=== PATIENT | male | born 1970 | race Caucasian/White ===

== ENCOUNTER 2021-08-05 22:19 | Inpatient (IN) | payer OTHER, SELFPAY ==
[2021-08-05] VITALS (13 sets, daily range): BP systolic 103–143; BP diastolic 69–98; PULSE 76–93; RESP 16–22; TEMP 36.3; O2SAT 95–98
[2021-08-05 22:46] LABS: Abs Immature Grans 0.01 10^3/uL (0.0-0.06); Absolute Basophil Count 0.07 10^3/uL (0.0-0.2); Absolute Eosinophil Count 0.26 10^3/uL (0.0-0.7); Absolute Lymphocyte Count 1.71 10^3/uL (1.2-3.4); Absolute Monocyte Count 0.42 10^3/uL (0.1-0.8); Absolute Neutrophil Count 3.61 10^3/uL (1.2-6.7); Basophils % 1.2; Eosinophils % 4.3; HCT 43.9 % (40.0-50.0); HGB 15.5 g/dL (13.5-17.5); Immature Grans % 0.2; Lymphocytes % 28.1; MCH 29.7 pg (27.0-33.0); MCHC 35.3 % (32.0-36.0); MCV 84 fL (80-95); Monocytes % 6.9; Neutrophils % 59.3; RBC 5.22 10^6/uL (4.36-5.78); RDW 11.4 % (11.8-14.1); RDW-SD 34.9 fL
[2021-08-05 22:59] LABS: ALT 33 U/L (16-63); AST 17 U/L (15-37); Albumin 3.5 g/dL (3.4-5.0); Alkaline Phosphatase 73 U/L (46-116); Anion Gap 4.2 mmol/L (3-11); BUN 14 mg/dL (7-18); Bilirubin, Total 0.6 mg/dL (0.2-1.0); CO2 28.8 mmol/L (21.0-32.0); Calcium 8.4 mg/dL (8.5-10.1); Chloride 103 mmol/L (98-107); Glucose 171 mg/dL (74-106); Potassium 4.1 mmol/L (3.5-5.1); Sodium 136 mmol/L (136-145); Total Protein 6.5 g/dL (6.4-8.2)
[2021-08-05 23:00] LABS: WBC 6.08 10^3/uL (4.4-10.8)
[2021-08-05 23:03] LABS: Platelet Count 1 10^3/uL (130-400)
[2021-08-05 23:06] LABS: Diff Comment PLT Morph Reviewed; RBC Morphology Normal
[2021-08-05 23:11] LABS: PTT Activated 24.4 sec (21.0-27.5); Prothrombin Time 9.9 sec (9.3-11.0)
[2021-08-05] MEDS: Normal Saline 50 ML 200 ML (23:24)
--- NOTE | 2021-08-05 23:26 | ED.GENADUL_ITS ---
Discharge Plan Disposition Patient Disposition: [facility] INPATIENT Condition: Serious Discharge Details Clinical Impression: Severe thrombocytopenia Admit Date/Time: 08/06/21 00:18 Admit Provider: Michael Senior Attending Provider: Michael Senior Primary Care Provider: Sayda,[facility] ED Provider: Jama Anton Discharge Data Discharge Date/Time-TO BE ENTERED AT DEPARTURE: 08/06/21 01:19 Medical Decision Making [id number] --51-year-old male here with recurrent thrombpcytopenia - diagnosed with ITP 2019. Patient has no active hemorrhage. He has had blood tinged urine and stool this evening. Patient is hemodynamically stable. Platelets are 1. Normal hemoglobin. Plan to treat with Decadron 40 mg IV. I have called [facility] [place] to request consultation with hematology. 0005 -- I spoke with Dr. Emery, production consultant hemonc at [facility] [place], discussed ED presentation and course, reviewed labs, he recommends additional diagnostic labs and recommends giving IVIG 1 g/kg x 1. He agrees with Decadron 40 mg IV. He also recommends 1 unit of platelets. He recommends consider redose of the IVIG if no appropriate response in the a.m. He recommends 4 days of Decadron. Plan to admit to hospitalist service. 1215 -- I spoke with Dr. Senior -discussed ED presentation and course, he will admit the patient. He request bridging orders be placed to [facility] floor. HPI General Mode of arrival: ambulatory . Date/Time Provider Initiated Documentation: 08/05/21 22:37 . Limitations to Documentation: no limitations . Information obtained by: patient . HPI Narrative: 51-year-old male with history of ITP in 2019 presents with chief complaint of b leeding. Patient notes rash on arms and legs consistent with prior flare of ITP. Rash started yesterday and has persisted. He also notes blood in stool and blood tinged urine, and blood blister on tongue. Symptoms severe. Constant. No modfiers. Related Data Home Medications Medication Instructions Recorded Confirmed dulaglutide 4.5 mg/0.5 mL 4.5 mg subcut QWEEK 08/05/21 08/05/21 subcutaneous pen injector (Trulicity) insulin degludec 100 unit/mL (3 34 unit subcut DAILY 08/05/21 08/05/21 mL) subcutaneous pen (Tresiba FlexTouch U-100 insulin) metformin 1,000 mg tablet 1,000 mg PO BID 08/05/21 08/05/21 Allergies Allergy/AdvReac Type Severity Reaction Status Date / Time No Known Allergies Allergy Unverified 08/05/21 22:28 General Stated Complaint: Vascular MORRO: 3 Review of Systems All systems reviewed & are unremarkable except as noted in HPI and below Constitutional Constitutional: Denies fever(s) Gastrointestinal Gastrointestinal: Reports as per HPI PFSH All Active Problems (Updated 08/06/21 @ 00:17 by Jama Anton MD) Severe thrombocytopenia (Acute) Social History Smoking/Tobacco Use Status: Never Smoking risk assessment performed?: Yes Alcohol Intake: never Do you feel safe at home: Yes Do you feel safe in your relationship?: Yes Exam Const General: cooperative and no acute distress HENMT Mouth: other (bloody gumline, tiny blood blisters on tongue) Eyes Conjunctivae: normal conjunctivae Sclera: normal sclerae Neck Neck: trachea midline and supple Resp Auscultation: clear to auscultation bilaterally, no rales, no rhonchi and no wheezes Cardio Rate: regular rate and not tachycardic Rhythm: regular rhythm GI Palpation: soft, not firm, no guarding, no masses, not rigid and nontender Skin Rashes: rashes noted (Petechial rash on extremities) Neuro General: patient alert, patient awake and tone normal Extrem General: no edema Psych Appearance: grossly normal Mental Status: mental status grossly normal Speech and Movement: speech and movement normal Course Vital Signs Vital signs: Vital Signs Temperature 36.3 C L 08/05/21 22:22 Pulse 92 H 08/05/21 22:22 Respiratory Rate 17 08/05/21 22:22 Blood Pressure 143/88 H 08/05/21 22:22 Pulse Oximetry 98 08/05/21 22:22 Temperature 36.3 C L 08/05/21 22:22 Temperature Source Temporal Artery Scan 08/05/21 22:22 Pulse 92 H 08/05/21 22:22 Respiratory Rate 17 08/05/21 22:22 Respiratory Effort 08/05/21 22:41 Blood Pressure 143/88 H 08/05/21 22:22 Blood Pressure Position Sitting 08/05/21 22:22 Pulse Oximetry 98 08/05/21 22:22 Oxygen Delivery Method Room Air 08/05/21 22:22 Oxygen Flow Rate 0 08/05/21 22:22 Pain Level 0 08/05/21 22:22 Lab/Test Results Lab/Test Results: Laboratory Tests Range/Units 08/05/21 08/05/21 08/05/21 22:31 22:31 22:31 WBC (4.4-10.8) 10^3/uL 6.08 RBC (4.36-5.78) 10^6/uL 5.22 Hgb (13.5-17.5) g/dL 15.5 Hct (40.0-50.0) % 43.9 MCV (80-95) fL 84 MCH (27.0-33.0) pg 29.7 MCHC (32.0-36.0) % 35.3 RDW (11.8-14.1) % 11.4 L Plt Count (130-400) 10^3/uL 1 L* MPV (8.0-11.0) fL Immature Gran % 0.2 Neutrophils % 59.3 Lymphocytes % 28.1 Monocytes % 6.9 Eosinophils % 4.3 Basophils % 1.2 Nucleated RBC % (0.0-0.3) % 0.0 Absolute Neutrophils (1.2-6.7) 10^3/uL 3.61 Absolute Lymphocytes (1.2-3.4) 10^3/uL 1.71 Absolute Monocytes (0.1-0.8) 10^3/uL 0.42 Absolute Eosinophils (0.0-0.7) 10^3/uL 0.26 Absolute Basophils (0.0-0.2) 10^3/uL 0.07 RBC Morphology Normal PT (9.3-11.0) sec 9.9 INR (0.9-1.1) 1.0 APTT (21.0-27.5) sec 24.4 Sodium (136-145) mmol/L 136 Potassium (3.5-5.1) mmol/L 4.1 Chloride (98-107) mmol/L 103 Carbon Dioxide (21.0-32.0) mmol/L 28.8 Anion Gap (3-11) mmol/L 4.2 BUN (7-18) mg/dL 14 Creatinine (0.70-1.30) mg/dL 1.0 Estimated GFR/1.73 m2 (mL/min/1.73m2) >= 60.00 Glucose (74-106) mg/dL 171 H Calcium (8.5-10.1) mg/dL 8.4 L Total Bilirubin (0.2-1.0) mg/dL 0.6 AST (15-37) U/L 17 ALT (16-63) U/L 33 Alkaline Phosphatase (46-116) U/L 73 Total Protein (6.4-8.2) g/dL 6.5 Albumin (3.4-5.0) g/dL 3.5 Critical Care Time Critical Care Time Critical Care Time: Yes Total Critical Care Time: 40 Attestation: I spent greater than 40 minutes addressing this patient's immediate life threats. Please see MDM section of note. This time was spent engaged in work directly related to the patient's care, exclusive of separate procedures, and failure to initiate these interventions would have likely resulted in clinically significant or life threatening deterioration in the patient's condition.
[2021-08-05] MEDS: Dexamethasone 10 MG/ML VIAL 40 MG IVP (23:29)
[2021-08-06] VITALS (31 sets, daily range): BP systolic 97–135; BP diastolic 67–98; PULSE 75–111; RESP 14–21; TEMP 36.4–37; O2SAT 93–97
[2021-08-06 00:45] LABS: D-Dimer 416 ng/mlFEU (<500)
[2021-08-06 00:51] LABS: Vitamin B12 1023 pg/mL (193-986)
[2021-08-06 00:59] LABS: Folate > 20.0 ng/mL (8.6-20.0)
[2021-08-06] MEDS: IMMUNE GLOBULIN 20 GM/200 ML BTL IVPB (01:13)
[2021-08-06] MEDS: Normal Saline Flush 10 ML SYR IVP ×8 (05:17→23:37)
--- NOTE | 2021-08-06 07:24 | HPE_ITS ---
Assessment and Plan Assessment and plan (1) Severe thrombocytopenia: Status: Acute Assessment and plan: He likely has ITP. Hematology was consulted early this morning by emergency staff and recommended 4 days of intravenous dexamethasone, transfusion of platelets and immunoglobulin. Platelet levels are pending for this morning. (2) Unvaccinated for covid-19: Status: Acute Assessment and plan: We discussed his COVID status. He does not want vaccination. (3) Diabetes mellitus: Status: Chronic Assessment and plan: His diabetes may not be under good control as he says his blood sugars are often around 180. We will continue monitoring his diabetes while here. (4) Rectal bleeding: Status: Acute Assessment and plan: He states his been having intermittent rectal bleeding for a while. He cannot recall whether he was having that prior to his last colonoscopy a few years ago. I recommend that he consider repeat colonoscopy. History of Present Illness History of Present Illness Chief Complaint: skin rash, blood in urine. Narrative: This 51-year-old male has a history of ITP. This was treated in a hospital in [facility] 3 years ago with intravenous dexamethasone and immun oglobulin. He said his platelets at that time were 0. This was his first episode of this problem. He says his platelets rebounded to the 200-400,000 range. A few days ago he tripped on some wood and fell injuring his right ankle, right arm and left knee causing some ecchymoses. He was not too c oncerned about this but then yesterday developed some rectal bleeding, the taste of iron in his mouth and hematuria. He also developed petechiae. He came to the emergency department and was seen and found that his platelets were 1000. Hematology was consulted who recommended platelet transfusion, intravenous gammaglobulin and steroids. He feels improved this morning. He states he did not have a headache but felt a bit lethargic last night. He does not use tobacco. He drinks about 1 or 2 glasses of wine per month. He does not want the COVID-vaccine as he thinks natural immunity will help him more than the vaccine. He has diabetes but no other health problems. He states he did have a colonoscopy a few years ago but has had intermittent rectal bleeding since then. I recommended he have a repeat colonoscopy. He says his blood sugars are usually about 180. I did not ask about an A1c level. Review of Systems Constitutional Constitutional: Denies chills, Denies fever(s), Denies headache(s) and Reports malaise ENT Ears, Nose, Mouth, and Throat: Denies headache(s) and Denies neck pain Cardiovascular Cardiovascular: Denies chest pain, Denies lightheadedness, Denies palpitations, Denies dyspnea and Denies slow heart rate Respiratory Respiratory: Denies cough, Denies dyspnea and Denies wheezing Gastrointestinal Gastrointestinal: Denies abdominal pain, Denies melena, Reports hematochezia, Re ports nausea, Denies vomiting and Denies hematemesis Genitourinary Genitourinary: Reports hematuria, Denies oliguria, Denies difficulty urinating and Denies dysuria Musculoskeletal Musculoskeletal: Denies muscle weakness and Denies neck pain Neurologic Neurologic: Denies headache(s) Endocrine Endocrine: Denies palpitations Hematologic/Lymphatic Hematologic/Lymphatic: Reports easy bleeding and Reports easy bruising Allergic/Immunologic Allergic/Immunologic: Denies wheezing PFSH All Active Problems (Updated 08/06/21 @ 08:11 by Michael Senior MD) Rectal bleeding (Acute) Diabetes mellitus (Chronic) Unvaccinated for covid-19 (Acute) Severe thrombocytopenia (Acute) Social History Smoking/Tobacco Use Status: Never Smoking risk assessment performed?: Yes Alcohol Intake: never Do you feel safe at home: Yes Do you feel safe in your relationship?: Yes Meds Allergies and Home Medications Allergies Allergy/AdvReac Type Severity Reaction Status Date / Time No Known Allergies Allergy Unverified 08/05/21 22:28 Home Medications Medication Instructions Recorded Confirmed Type dulaglutide 4.5 mg/0.5 mL 4.5 mg subcut QWEEK 08/05/21 08/05/21 History subcutaneous pen injector (Trulicity) insulin degludec 100 unit/mL (3 34 unit subcut DAILY 08/05/21 08/05/21 History mL) subcutaneous pen (Tresiba FlexTouch U-100 insulin) metformin 1,000 mg tablet 1,000 mg PO BID 08/05/21 08/05/21 History Exam Const General: cooperative, healthy appearing, no acute distress and not lethargic Nutritional Appearance: average body habitus and well nourished Orientation: alert, awake and oriented x3 Neck Neck: normal visual inspection, no lymphadenopathy and no meningeal signs Thyroid: thyroid normal Resp Auscultation: clear to auscultation bilaterally, no rales, no rhonchi and no wheezes Cardio Rate: regular rate Rhythm: regular rhythm Heart Sounds: S1 normal, no gallops and no murmurs GI Palpation: soft, no hepatosplenomegaly, not firm and nontender Skin Other: Ecchymoses of right forearm, bilateral anterior knees, left fenton and right ankle. Neuro General: moves all extremities Cranial Nerves: CN's II-XI intact bilaterally Extrem General: no pedal edema, no calf tenderness bilaterally and no cyanosis Results Labs Result diagrams: 08/05/21 22:31 08/05/21 22:31 Labs: Laboratory Results - last 24 hr 08/05/21 08/05/21 08/05/21 22:31 22:31 22:31 WBC 6.08 RBC 5.22 Hgb 15.5 Hct 43.9 MCV 84 MCH 29.7 MCHC 35.3 RDW 11.4 L Plt Count 1 L* MPV Immature Gran % 0.2 Neutrophils % 59.3 Lymphocytes % 28.1 Monocytes % 6.9 Eosinophils % 4.3 Basophils % 1.2 Nucleated RBC % 0.0 Absolute Neutrophils 3.61 Absolute Lymphocytes 1.71 Absolute Monocytes 0.42 Absolute Eosinophils 0.26 Absolute Basophils 0.07 RBC Morphology Normal PT 9.9 INR 1.0 APTT 24.4 D-Dimer Sodium 136 Potassium 4.1 Chloride 103 Carbon Dioxide 28.8 Anion Gap 4.2 BUN 14 Creatinine 1.0 Estimated GFR/1.73 m2 >= 60.00 Glucose 171 H Calcium 8.4 L Total Bilirubin 0.6 AST 17 ALT 33 Alkaline Phosphatase 73 Total Protein 6.5 Albumin 3.5 Vitamin B12 Folate COVID-19 Source Patient ABO/Rh 08/05/21 08/05/21 08/06/21 22:31 22:31 00:10 WBC RBC Hgb Hct MCV MCH MCHC RDW Plt Count MPV Immature Gran % Neutrophils % Lymphocytes % Monocytes % Eosinophils % Basophils % Nucleated RBC % Absolute Neutrophils Absolute Lymphocytes Absolute Monocytes Absolute Eosinophils Absolute Basophils RBC Morphology PT INR APTT D-Dimer 416 Sodium Potassium Chloride Carbon Dioxide Anion Gap BUN Creatinine Estimated GFR/1.73 m2 Glucose Calcium Total Bilirubin AST ALT Alkaline Phosphatase Total Protein Albumin Vitamin B12 1023 H Folate > 20.0 H COVID-19 Source Patient ABO/Rh A Positive 08/06/21 01:00 WBC RBC Hgb Hct MCV MCH MCHC RDW Plt Count MPV Immature Gran % Neutrophils % Lymphocytes % Monocytes % Eosinophils % Basophils % Nucleated RBC % Absolute Neutrophils Absolute Lymphocytes Absolute Monocytes Absolute Eosinophils Absolute Basophils RBC Morphology PT INR APTT D-Dimer Sodium Potassium Chloride Carbon Dioxide Anion Gap BUN Creatinine Estimated GFR/1.73 m2 Glucose Calcium Total Bilirubin AST ALT Alkaline Phosphatase Total Protein Albumin Vitamin B12 Folate COVID-19 Source Nasal/Nares Patient ABO/Rh Last Vital Signs Temp 36.6 C 08/06/21 06:25 Pulse 104 H 08/06/21 06:25 Resp 18 08/06/21 06:25 BP 126/81 08/06/21 06:25 Pulse Ox 97 08/06/21 06:25
[2021-08-06 07:39] LABS: Source Nasal/Nares
[2021-08-06] MEDS: Insulin Aspart 300 UNITS/3 ML PEN SC ×3 (08:27→16:53)
[2021-08-06] MEDS: metFORMIN 500 MG TAB 1000 MG PO ×2 (08:28→16:52)
[2021-08-06 08:29] LABS: COVID-19 PCR Negative (Negative)
--- NOTE | 2021-08-06 08:52 | PDOC.CMIN ---
- If Service Date Differs Date of service: 08/06/21 Time of Service: 08:53 Care Management Initial Assess REASON FOR HOSPITALIZATION:: severe thrombocytopenia PAST MEDICAL HISTORY/PAST SURGICAL HISTORY:: PFSH. All Active Problems (Updated 08/06/21 @ 08:11 by Michael Senior MD). Rectal bleeding (Acute). Diabetes mellitus (Chronic). Unvaccinated for covid-19 (Acute). Severe thrombocytopenia (Acute) PREVIOUS FUNCTIONAL STATUS/SOCIAL/FAMILY SUPPORTS:: Danny lives in [place] with his Jessica. Between them they have 7 children however none of them live in [place]. 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 He is independent at baseline and receives no services. CURRENT FUNCTIONAL STATUS:: Danny was sitting up in bed visiting with his when CM met with him. He was in good spirits and easily engaged with CM. Danny shared that he owns 200 acres, has solar panels and a large supply of gas and diesel. He and his are both very independent and share a good sense of humor, laughing and joking frequently during the visit. Danny anticipate remaining in the hospital until Monday for treatment of his thrombocytopenia with Immune globulin and steroids. He and his are planning to drive to [place] on Monday to visit with family. ADVANCE DIRECTIVES:: has documents but not on file at [facility] Has patient been provided with info about the portal/API?: Yes Did the patient sign up for the portal?: No CODE STATUS:: Full Code INSURANCE COVERAGE / FINANCIAL ISSUES:: [facility] CURRENT HOME/COMMUNITY SERVICES/EQUIPMENT:: none PRIMARY CARE PHYSICIAN:: none locally. sees an gis analyst in [facility] POTENTIAL DISCHARGE NEEDS:: follow up with community providers PATIENT/FAMILY EDUCATION NEEDS:: Review of discharge instructions, medications, follow up plan, limitations, discuss Ask me Three. TRANSPORTATION:: via private vehicle with PLAN:: Danny will be discharged home with no new services. He will follow up with community providers and plan of care and transport with family.
[2021-08-06 10:00] LABS: Abs Immature Grans 0.02 10^3/uL (0.0-0.06); Absolute Basophil Count 0.02 10^3/uL (0.0-0.2); Absolute Eosinophil Count 0.02 10^3/uL (0.0-0.7); Absolute Lymphocyte Count 0.41 10^3/uL (1.2-3.4); Absolute Monocyte Count 0.06 10^3/uL (0.1-0.8); Absolute Neutrophil Count 4.79 10^3/uL (1.2-6.7); Basophils % 0.4; Eosinophils % 0.4; HCT 43.5 % (40.0-50.0); HGB 15.8 g/dL (13.5-17.5); Immature Grans % 0.4; Lymphocytes % 7.7; MCH 29.9 pg (27.0-33.0); MCHC 36.3 % (32.0-36.0); MCV 82 fL (80-95); Monocytes % 1.1; RBC 5.28 10^6/uL (4.36-5.78); RDW 11.5 % (11.8-14.1); WBC 5.32 10^3/uL (4.4-10.8)
[2021-08-06] MEDS: IMMUNE GLOBULIN 40 GM/400 ML BTL IVPB ×2 (10:08→13:15)
[2021-08-06 10:22] LABS: CREATININE 1.1 mg/dL (0.70-1.30); Chloride 103 mmol/L (98-107)
[2021-08-06 10:34] LABS: Diff Comment Diff Reviewed; Platelet Count 2 10^3/uL (130-400); RBC Morphology Normal
--- NOTE | 2021-08-06 10:49 | NUR.NOTE ---
Nursing Note: 1000: RN in room with pt, discussing twistedankle. pt declines offer for imaging to be requested, pt states I ruined my ankle playing soccer in college, it's been rebuilt, and I guess this all began back playing little league baseball. RN offers ice to pt which he declines. pt states he feels that everything is better since being here, feels great.
[2021-08-06 11:16] LABS: Anion Gap 10.8 mmol/L (3-11); BUN 18 mg/dL (7-18); CO2 22.2 mmol/L (21.0-32.0); Glucose 394 mg/dL (74-106); Sodium 136 mmol/L (136-145)
[2021-08-06 11:19] LABS: Calcium 8.9 mg/dL (8.5-10.1); Potassium 4.7 mmol/L (3.5-5.1)
[2021-08-06] MEDS: Pantoprazole 40 MG TABCR PO (11:33)
[2021-08-06] MEDS: Hydrocortisone 1% CR 30 GM TUBE TP ×2 (13:29→20:17)
[2021-08-06 13:44] LABS: Fibrinogen 297 mg/dL (171-384)
--- NOTE | 2021-08-06 15:10 | W.PM.PROGNOT ---
Date of Service Date of service: 08/06/21 Time of Service: 14:13 Subjective Subjective Interval history since last seen: Mr Glass was seen in brief follow up. Mr Glass states he is feeling well. He does not taste blood in his mouth like he did yesterday. His hematuria has resolved. He has not seen any more blood in stool. He does not have any current bleeding. We discussed how he should not scratch the black fly bites he has on his legs (he was prescribed a hydrocortisone ointment) because he should bleed. I instructed the patient's to buy a very soft-bristelled tooth brush for him. The patient stated that he had injured his right ankle a couple of days ago. It is not bothering him but it is a little bit swollen. We discussed how it is critically important that he does not fall and he is open to the idea of having a physical therapy evaluation. I discussed the case with Dr Perdomo of hematology at [facility]. She recommended 3 doses total of IVIG 1 mg/kg. Our pharmacy has made these arrangements now. She also recommended that we continue dexamethasone 40 mg x 4 doses total. The patient had stated that he is traveling on Monday night. I discussed with him that it would likely be possible to be discharged, but that we would see how his platelet count recovers and if he develops any bleeding. The patient needs a hematology referral, which I am happy to place. Objective Last Vital Signs Temp 37.0 C 08/06/21 14:40 Pulse 111 H 08/06/21 14:40 Resp 16 08/06/21 14:40 BP 123/67 08/06/21 14:40 Pulse Ox 96 08/06/21 14:40 Laboratory Results - last 24 hr 08/05/21 08/05/21 08/05/21 22:31 22:31 22:31 WBC 6.08 RBC 5.22 Hgb 15.5 Hct 43.9 MCV 84 MCH 29.7 MCHC 35.3 RDW 11.4 L Plt Count 1 L* MPV Immature Gran % 0.2 Neutrophils % 59.3 Lymphocytes % 28.1 Monocytes % 6.9 Eosinophils % 4.3 Basophils % 1.2 Nucleated RBC % 0.0 Absolute Neutrophils 3.61 Absolute Lymphocytes 1.71 Absolute Monocytes 0.42 Absolute Eosinophils 0.26 Absolute Basophils 0.07 RBC Morphology Normal PT 9.9 INR 1.0 APTT 24.4 Fibrinogen D-Dimer Sodium 136 Potassium 4.1 Chloride 103 Carbon Dioxide 28.8 Anion Gap 4.2 BUN 14 Creatinine 1.0 Estimated GFR/1.73 m2 >= 60.00 Glucose 171 H Calcium 8.4 L Total Bilirubin 0.6 AST 17 ALT 33 Alkaline Phosphatase 73 Total Protein 6.5 Albumin 3.5 Vitamin B12 Folate COVID-19 Source SARS-CoV-2 (PCR) Patient ABO/Rh 08/05/21 08/05/21 08/06/21 22:31 22:31 00:10 WBC RBC Hgb Hct MCV MCH MCHC RDW Plt Count MPV Immature Gran % Neutrophils % Lymphocytes % Monocytes % Eosinophils % Basophils % Nucleated RBC % Absolute Neutrophils Absolute Lymphocytes Absolute Monocytes Absolute Eosinophils Absolute Basophils RBC Morphology PT INR APTT Fibrinogen D-Dimer 416 Sodium Potassium Chloride Carbon Dioxide Anion Gap BUN Creatinine Estimated GFR/1.73 m2 Glucose Calcium Total Bilirubin AST ALT Alkaline Phosphatase Total Protein Albumin Vitamin B12 1023 H Folate > 20.0 H COVID-19 Source SARS-CoV-2 (PCR) Patient ABO/Rh A Positive 08/06/21 08/06/21 08/06/21 01:00 09:40 09:40 WBC 5.32 RBC 5.28 Hgb 15.8 Hct 43.5 MCV 82 MCH 29.9 MCHC 36.3 H D RDW 11.5 L Plt Count 2 L* D MPV Immature Gran % 0.4 Neutrophils % 90.0 Lymphocytes % 7.7 Monocytes % 1.1 Eosinophils % 0.4 Basophils % 0.4 Nucleated RBC % 0.0 Absolute Neutrophils 4.79 Absolute Lymphocytes 0.41 L Absolute Monocytes 0.06 L Absolute Eosinophils 0.02 Absolute Basophils 0.02 RBC Morphology Normal PT INR APTT Fibrinogen 297 D-Dimer Sodium Potassium Chloride Carbon Dioxide Anion Gap BUN Creatinine Estimated GFR/1.73 m2 Glucose Calcium Total Bilirubin AST ALT Alkaline Phosphatase Total Protein Albumin Vitamin B12 Folate COVID-19 Source Nasal/Nares SARS-CoV-2 (PCR) Negative Patient ABO/Rh 08/06/21 09:40 WBC RBC Hgb Hct MCV MCH MCHC RDW Plt Count MPV Immature Gran % Neutrophils % Lymphocytes % Monocytes % Eosinophils % Basophils % Nucleated RBC % Absolute Neutrophils Absolute Lymphocytes Absolute Monocytes Absolute Eosinophils Absolute Basophils RBC Morphology PT INR APTT Fibrinogen D-Dimer Sodium 136 Potassium 4.7 Chloride 103 Carbon Dioxide 22.2 Anion Gap 10.8 BUN 18 Creatinine 1.1 Estimated GFR/1.73 m2 >= 60.00 Glucose 394 H Calcium 8.9 Total Bilirubin AST ALT Alkaline Phosphatase Total Protein Albumin Vitamin B12 Folate COVID-19 Source SARS-CoV-2 (PCR) Patient ABO/Rh
[2021-08-06] MEDS: Dexamethasone 10 MG/ML VIAL 40 MG IVP (23:36)
[2021-08-06] MEDS: Normal Saline 100 ML 50 ML (23:49)
[2021-08-07 05:01] VITALS: BP 122/75; PULSE 98; RESP 18; TEMP 36.4
[2021-08-07 07:36] LABS: Platelet Count 32 10^3/uL (130-400)
[2021-08-07] MEDS: Hydrocortisone 1% CR 30 GM TUBE TP (07:50)
[2021-08-07] MEDS: metFORMIN 500 MG TAB 1000 MG PO ×2 (07:50→17:21)
[2021-08-07] MEDS: Pantoprazole 40 MG TABCR PO (07:50)
[2021-08-07] MEDS: Insulin Aspart 300 UNITS/3 ML PEN SC ×3 (07:51→17:16)
[2021-08-07 08:00] VITALS: BP 116/73; PULSE 98; RESP 18; TEMP 36.5; O2SAT 94
[2021-08-07] MEDS: Normal Saline Flush 10 ML SYR IVP ×2 (09:13→16:00)
--- NOTE | 2021-08-07 09:21 | PT.INIE ---
Date of service: 08/07/21 Time of Service: 09:10 PT Notes Visit Reasons: Severe Thrombocytopenia Inpatient Physical Therapy Evaluation Date: 08/07/2021 Referring Doctor: Angely Bridges MD PT Orders: PT CONSULT: Limited ability, recent fall with right ankle injury, evaluate for AD Precautions: Thrombocytopenia Patient Profile/Admitting Diagnosis: Patient admitted for management of ITP, with report of ankle injury 3 to 4 days ago. PMHX: All Active Problems?(Updated 08/06/21 @ 08:11 by Michael Senior MD) Rectal bleeding (Acute) Diabetes mellitus (Chronic) Unvaccinated for covid-19 (Acute) Severe thrombocytopenia (Acute) Social History/Home Situation: Lives with his in a private home on [place], independently functioning Current Functional Limitations: None Equipment Owned/DME: None Subjective: Patient reports ankle injury 3 to 4 days ago. Has history of ankle instability, with multiple inversion sprains in high school, with infrequent, but reoccurring inversion sprains through the years. On this episode 3 to 4 days ago, he had hopped over a log, which he states he had no place doing given his history, and inverted his ankle. He has naturally improved over the course of 3 to 4 days with reduced swelling and is now walking on his ankle and moving it without pain. Objective: General Observation: Lying in hospital bed on tablet. Fully dressed, in no distress. Does have some bruising throughout lower extremities consistent with his platelet disorder. Scab on anterior right knee, which is healing. Very mild swelling right ankle, to left, no pitting edema Mental Status: A&O x3 Pain: 0/10 Vital Signs: BP 116/73 ROM: Right Upper Extremity: WNL Left Upper Extremity: WNL Right Lower Extremity: WNL, mild discomfort endrange right ankle inversion along lateral ankle Left Lower Extremity: WNL Strength: Right Upper Extremity: WNL Left Upper Extremity: WNL Right Lower Extremity: WNL Left Lower Extremity: WNL Sensation: WNL Bed Mobility/Transfers: Independent Gait: WNL, independent, no need for assistive device Balance: Unimpaired, excellent with static and dynamic activities Special Tests: Mobility Limitations Standardized Measure 0% disability Informed Consent/Education: Patient instructed in purpose of PT consult and plan of care. Assessment: Patient is a 51year old malereferred to physical therapy services with the diagnosis of ITP, with healing right ankle inversion sprain. Patient demonstrating mild swelling of right ankle and discomfort with palpation on lateral ankle as expected post inversion sprain, but has now actually improved over the course of 3 to 4 days. Has history of chronic instability due to history of chronic ankle sprains, recommending ASO, and directed to proper device to be purchased commercially. Otherwise, patient is demonstrating no impairment of functional level problems worthy of PT, he is completely independent, pain-free, and without any mobility deficits. He is discharged from PT service. Patient is assessed as a Low 26633 complexity based on the following: History: See comorbidities, patient lives independently with his Examination: Minimal impairments, full functional mobility Presentation: Stable Decision Making: Easy Plan of Care/Treatment Plan: Discharged DISCHARGE RECOMMENDATIONS: Home with no services TREATMENT CODE/TIME: 60977, 15 minutes direct and total Documented with [employer] voice recognition software.
[2021-08-07] MEDS: IMMUNE GLOBULIN 40 GM/400 ML BTL IVPB (10:25)
[2021-08-07 11:27] VITALS: BP 116/75; PULSE 92; RESP 16; TEMP 36.7; O2SAT 95
[2021-08-07] MEDS: IMMUNE GLOBULIN 20 GM/200 ML BTL IVPB ×3 (13:11→15:03)
[2021-08-07 15:40] VITALS: BP 129/81; PULSE 95; RESP 16; TEMP 37.1; O2SAT 95
--- NOTE | 2021-08-07 17:34 | W.PM.PROGNOT ---
Date of Service Date of service: 08/07/21 Time of Service: 16:34 Assessment and Plan Assessment and plan (1) Severe thrombocytopenia: Status: Acute Assessment and plan: ITP. Second occurence. Hematology was consulted by emergency staff and recommended 4 days of intravenous dexamethasone, transfusion of platelets and immunoglobulin. Platelets have improved to 32.1 from low of 1. Hematuria and gingival bleeding resolved. (2) Unvaccinated for covid-19: Status: Acute Assessment and plan: We discussed his COVID status. He does not want vaccination. (3) Diabetes mellitus: Status: Chronic Assessment and plan: His diabetes may not be under good control as he says his blood sugars are often around 180. We will continue monitoring his diabetes while here and on dexamethasone. (4) Rectal bleeding: Status: Acute Assessment and plan: He states his been having intermittent rectal bleeding for a while. He cannot recall whether he was having that prior to his last colonoscopy a few years ago. I recommend that he consider repeat colonoscopy. Subjective Subjective Patient reports: no new complaints and afebrile; denies nausea or vomiting Interval history since last seen: No further oral bleeding noted. Left ankle feels better. Exam Narrative Exam Narrative: Sitting in bed. Pleasant and conversant. Const General: cooperative, healthy appearing, no acute distress and not lethargic Nutritional Appearance: average body habitus and well nourished Orientation: alert, awake and oriented x3 Eyes Sclera: sclerae normal Neck Neck: normal visual inspection and full ROM Resp Effort & Inspection: normal respiratory effort Auscultation: clear to auscultation bilaterally, no rales, no rhonchi and no wheezes Cardio Rate: regular rate Rhythm: regular rhythm Heart Sounds: S1 normal, no gallops and no murmurs GI Palpation: soft, not firm and nontender Skin Other: Ecchymoses of right forearm, bilateral anterior knees, left fenton and right ankle. Full body images: 1. scabbed over abrasions x 2 on R knee 2. Petecchiae Neuro General: moves all extremities Cranial Nerves: CN's II-XI intact bilaterally Extrem General: no pedal edema, no calf tenderness bilaterally and no cyanosis Objective Last Vital Signs Temp 37.1 C 08/07/21 15:40 Pulse 95 H 08/07/21 15:40 Resp 16 08/07/21 15:40 BP 129/81 08/07/21 15:40 Pulse Ox 95 08/07/21 15:40 Laboratory Results - last 24 hr 08/07/21 07:14 Plt Count 32 L D
[2021-08-07 19:45] VITALS: BP 127/78; PULSE 99; RESP 18; TEMP 36.9; O2SAT 95
[2021-08-07 23:05] VITALS: BP 124/76; PULSE 89; RESP 18; TEMP 36.3; O2SAT 95
[2021-08-07] MEDS: Normal Saline 50 ML (23:55)
[2021-08-07] MEDS: Dexamethasone 10 MG/ML VIAL 40 MG IVP (23:55)
[2021-08-08 05:27] VITALS: BP 120/75; PULSE 93; RESP 16; TEMP 35.9; O2SAT 99
[2021-08-08 07:03] LABS: Abs Immature Grans 0.04 10^3/uL (0.0-0.06); Absolute Basophil Count 0.01 10^3/uL (0.0-0.2); Absolute Lymphocyte Count 0.56 10^3/uL (1.2-3.4); Absolute Monocyte Count 0.07 10^3/uL (0.1-0.8); Absolute Neutrophil Count 6.37 10^3/uL (1.2-6.7); Basophils % 0.1; HGB 13.3 g/dL (13.5-17.5); Immature Grans % 0.6; Lymphocytes % 7.9; MCH 29.2 pg (27.0-33.0); MCV 83 fL (80-95); MPV 11.3 fL (8.0-11.0); Neutrophils % 90.4; Platelet Count 78 10^3/uL (130-400); RBC 4.56 10^6/uL (4.36-5.78); RDW 11.5 % (11.8-14.1); RDW-SD 34.5 fL; WBC 7.05 10^3/uL (4.4-10.8)
[2021-08-08] MEDS: metFORMIN 500 MG TAB 1000 MG PO (08:14)
[2021-08-08] MEDS: Pantoprazole 40 MG TABCR PO (08:14)
[2021-08-08] MEDS: Hydrocortisone 1% CR 30 GM TUBE TP (08:14)
[2021-08-08] MEDS: Normal Saline Flush 10 ML SYR IVP (08:15)
[2021-08-08] MEDS: Insulin Aspart 300 UNITS/3 ML PEN SC ×2 (08:15→11:46)
[2021-08-08] MEDS: IMMUNE GLOBULIN 40 GM/400 ML BTL IVPB (08:16)
[2021-08-08] MEDS: IMMUNE GLOBULIN 20 GM/200 ML BTL IVPB ×3 (10:45→12:36)
--- NOTE | 2021-08-08 11:01 | DSE_ITS ---
Date of service: 08/08/21 Time of Service: 10:02 DS: Diagnosis Discharge Diagnosis (1) Severe thrombocytopenia: Status: Acute (2) Unvaccinated for covid-19: Status: Acute (3) Diabetes mellitus: Status: Chronic (4) Rectal bleeding: Status: Acute Discharge Plan Disposition Patient Disposition: HOME Condition: Improving Discharge Details Reason For Visit: Severe Thrombocytopenia Admit Date/Time: 08/06/21 00:18 Admit Provider: Michael Senior Attending Provider: Michael Senior Primary Care Provider: Say[facility] Hospital Course: This 51-year-old male has a history of ITP, DM2 on insulin.? This was treated in a hospital in [facility] 3 years ago with intravenous dexamethasone and immunoglobulin.? He said his platelets at that time were 0.?He says his platelets rebounded to the 200-400,000 range.? He recently tripped on some wood and fell, injuring his right ankle, arm and knee causing some ecchymoses to the ankle and abrasions to the knee.? He was not too concerned about this but then developed some rectal bleeding, the taste of iron in his mouth and hematuria.? He also developed petechiae.? He came to the emergency department and was seen and found that his platelets were 1000.? Hematology was consulted who recommended platelet transfusion, intravenous gammaglobulin and steroids. He does not use tobacco.? He drinks about 1 or 2 glasses of wine per month.? He does not want the COVID-vaccine as he thinks natural immunity will help him more than the vaccine.? He has diabetes but no other health problems.? He states he did have a colonoscopy a few years ago but has had intermittent rectal bleeding since then. During this stay his ankle welling resolved and PT evaluated him. He received 4 doses of IV dexamethasone and 4 IV IG infusions. His platelets improved to 78 and he had resolution of the hematuria and oral bleeding. He will be scheduled a f/u with the oncall provider that was covering the night he presented to the ED; he has no local provider. Home Meds and New Rx's Prescriptions: New hydrocortisone 1 % Cream With Perineal Applicator 3 g topical TID Qty: 0 0RF Continued Trulicity 4.5 mg/0.5 mL Pen Injector 4.5 mg SUBCUT QWEEK metformin 1,000 mg Tablet 1,000 mg PO BID Tresiba FlexTouch U-100 100 unit/mL (3 mL) Insulin Pen 34 unit SUBCUT DAILY Discharge Instructions Instructions: Immune Thrombocytopenia (GEN) Referrals: HEMATOLOGY/ONC,[facility] [place] [OTHER] - (hematology: ITP) Activity:: Activity as Tolerated Equipment/Supplies:: ankle brace/support Diet:: resume home diabetic diet DS: Summary Time Spent with Patient providing and/or coordinating discharge services: Greater than 30 minutes Status at Discharge Functional status at discharge: independent ambulation Overall status at discharge: patient is progressing back to baseline Mental Status: mental status grossly normal Speech and Movement: speech and movement normal Mood: congruent mood Affect: normal affect Exam Narrative Exam Narrative: Sitting in bed. Pleasant and conversant. Const General: cooperative, healthy appearing, no acute distress and not lethargic Nutritional Appearance: average body habitus and well nourished Orientation: alert, awake and oriented x3 Eyes Sclera: sclerae normal Neck Neck: normal visual inspection and full ROM Resp Effort & Inspection: normal respiratory effort Auscultation: clear to auscultation bilaterally, no rales, no rhonchi and no wheezes Cardio Rate: regular rate Rhythm: regular rhythm Heart Sounds: S1 normal, no gallops and no murmurs GI Palpation: soft, not firm and nontender Skin Other: Ecchymoses of right forearm, bilateral anterior knees, left fenton and right ankle. Neuro General: moves all extremities Cranial Nerves: CN's II-XI intact bilaterally Extrem General: no pedal edema, no calf tenderness bilaterally and no cyanosis Psych Mental Status: mental status grossly normal Speech and Movement: speech and movement normal Mood: congruent mood Affect: normal affect DS: Data Vitals/I&O Vitals and I&O: Vital Signs Temperature 35.9 C L 08/08/21 05:27 Temperature Source Tympanic 08/08/21 05:27 Pulse 93 H 08/08/21 05:27 Pulse Rhythm Regular 08/08/21 09:11 Pulse 89 08/06/21 01:10 Respiratory Rate 16 08/08/21 05:27 Respiratory Effort 08/08/21 09:11 Respiratory Depth Normal 08/08/21 09:11 Respiratory Pattern Normal 08/08/21 09:11 Blood Pressure 120/75 08/08/21 05:27 Blood Pressure Mean 84 05/27/22 01:16 Blood Pressure Position Sitting 08/05/21 22:22 Pulse Oximetry 99 08/08/21 05:27 Oxygen Delivery Method Room Air 08/08/21 05:27 Oxygen Flow Rate 0 08/08/21 05:27 Pain Level 0 08/08/21 05:27 Intake & Output 08/07/21 08/07/21 08/08/21 11:59 23:59 11:59 Intake Total 295.852 / 1250.000 954.148 / 1250.000 400.000 / 400.000 Balance 295.852 / 1250.000 954.148 / 1250.000 400.000 / 400.000 Intake: IV 45.852 / 1000.000 954.148 / 1000.000 400.000 / 400.000 Oral 250 / 250 Other: Urine Appearance Clear Clear Clear Comment voids independently into the bathroom voids independently into the bathroom Voiding Methods Toilet Toilet Data Completed and Pending Labs on day of discharge: Labs from last 24 hours 08/08/21 06:40 WBC 7.05 RBC 4.56 Hgb 13.3 L D Hct 38.0 L MCV 83 MCH 29.2 MCHC 35.0 D RDW 11.5 L Plt Count 78 L D MPV 11.3 H Immature Gran % 0.6 Neutrophils % 90.4 Lymphocytes % 7.9 Monocytes % 1.0 Eosinophils % 0.0 Basophils % 0.1 Nucleated RBC % 0.0 Absolute Neutrophils 6.37 Absolute Lymphocytes 0.56 L Absolute Monocytes 0.07 L Absolute Eosinophils 0.00 Absolute Basophils 0.01 PFSH All Active Problems Rectal bleeding (Acute) Diabetes mellitus (Chronic) Unvaccinated for covid-19 (Acute) Severe thrombocytopenia (Acute) Social History Smoking/Tobacco Use Status: Never Smoking risk assessment performed?: Yes Alcohol Intake: never Do you feel safe at home: Yes Do you feel safe in your relationship?: Yes
--- NOTE | 2021-08-08 11:57 | PDOC.CMDIS ---
- If Service Date Differs Date of service: 08/08/21 Time of Service: 11:57 LACE Index Scoring Tool - Questions: Length of Stay (in days): 2 Acuity (Admit via E.D.?): Yes Comorbidities: Diabetes w/o Complication E.D. Visits: 1 - Answers: Total Score: 7 Risk of Readmission: Low Risk Care Management Discharge Reason for Hospitalization: severe thrombocytopenia Discharge Plan: Danny is discharged home via private vehicle with family. No new VNA services are indicated at this time. Danny will resume a diabetic diet and activity as tolerated. Pt will follow up with his community providers and discharge plan of care as prescribed. Patient/Family Education Needs: Review discharge instructions, limitations, medications and plan to follow up with community providers. ask me three.
[2021-08-09 10:21] LABS: HIV-1/2 Ag & Ab Screen Negative (Negative)
[2021-08-09 11:53] LABS: Hepatitis A Antibody IgM Negative (Negative); Hepatitis B Core Antibody Positive (Negative); Hepatitis B surface Ag Negative (Negative); Hepatitis C Ab w Rflx HCV PCR Negative (Negative)
[2021-08-11 09:24] LABS: Platelet Function Analysis See Comments secs
[2021-08-11 17:37] LABS: HBc IgM Ab, S Negative (Negative)
== END 2021-08-08 13:34 | disposition home or self-care (01) | DRG 813 ==
LOC: ER 08-06 00:29 → MS 08-06 01:50
PROVIDERS: Family Medicine; Internal Medicine; Admitting Provider Family Medicine; Emergency Provider Student in an Organized Health Care Education/Training Program; Visit Provider Family Medicine
DX: D69.3 Immune thrombocytopenic purpura (principal); K62.5 Hemorrhage of anus and rectum; R31.9 Hematuria, unspecified; S80.211A Abrasion, right knee, initial encounter; E11.9 Type 2 diabetes mellitus without complications; W19.XXXA Unspecified fall, initial encounter; Z79.4 Long term (current) use of insulin; Z28.310 Unvaccinated for COVID-19
CPT/HCPCS: 36415; 80048; 80053; 85384; 86704; 86709; 86803; 86900; 86901; 87340; 87389; 87635; 96374; 96375; 97161; 99291; 82607; 82746; 85025; 85049; 85379; 85576; 85610; 85730; 86705; 99222; 99232; 99239; J1100; J1459; P9035

== ENCOUNTER 2024-04-05 11:19 | Outpatient (CLI) | payer BC, SELFPAY ==
[2024-04-05 07:58] LABS: Abs Immature Grans 0.02 10^3/uL (0.0-0.06); Absolute Basophil Count 0.05 10^3/uL (0.0-0.2); Absolute Eosinophil Count 0.39 10^3/uL (0.0-0.7); Absolute Lymphocyte Count 1.18 10^3/uL (1.2-3.4); Absolute Monocyte Count 0.58 10^3/uL (0.1-0.8); Absolute Neutrophil Count 1.93 10^3/uL (1.2-6.7); Basophils % 1.2 %; Eosinophils % 9.4 %; HGB 16.3 g/dL (13.5-17.5); Immature Grans % 0.5 %; Lymphocytes % 28.4 %; MCH 28.8 pg (27.0-33.0); MCHC 35.4 % (32.0-36.0); MCV 81 fL (80-95); MPV 10.2 fL (8.0-11.0); Neutrophils % 46.5 %; Platelet Count 285 10^3/uL (130-400); RBC 5.66 10^6/uL (4.36-5.78); RDW-SD 35.5 fL; WBC 4.15 10^3/uL (4.4-10.8)
== END 2024-04-05 11:20 | disposition home or self-care (01) ==
LOC: LBO 11:20
PROVIDERS: Visit Provider Internal Medicine
DX: D69.3 Immune thrombocytopenic purpura (principal)
CPT/HCPCS: 36415; 85025

== ENCOUNTER 2024-04-12 00:41 | Outpatient (CLI) | payer BC, SELFPAY ==
[2024-04-12 08:48] LABS: Abs Immature Grans 0.01 10^3/uL (0.0-0.06); Absolute Basophil Count 0.11 10^3/uL (0.0-0.2); Absolute Eosinophil Count 0.19 10^3/uL (0.0-0.7); Absolute Monocyte Count 0.42 10^3/uL (0.1-0.8); Basophils % 2.1 %; Eosinophils % 3.7 %; HCT 46.3 % (40.0-50.0); HGB 15.9 g/dL (13.5-17.5); Immature Grans % 0.2 %; Lymphocytes % 27.3 %; MCH 28.7 pg (27.0-33.0); MCHC 34.3 % (32.0-36.0); MCV 84 fL (80-95); MPV 10.5 fL (8.0-11.0); Monocytes % 8.2 %; Neutrophils % 58.5 %; Platelet Count 208 10^3/uL (130-400); RBC 5.54 10^6/uL (4.36-5.78); RDW-SD 36.3 fL; WBC 5.13 10^3/uL (4.4-10.8)
== END 2024-04-12 00:42 | disposition home or self-care (01) ==
PROVIDERS: Visit Provider Internal Medicine
DX: D69.3 Immune thrombocytopenic purpura (principal)
CPT/HCPCS: 36415; 85025

== ENCOUNTER 2024-04-19 01:13 | Outpatient (CLI) | payer BC, SELFPAY ==
[2024-04-19 08:51] LABS: Abs Immature Grans 0.02 10^3/uL (0.0-0.06); Absolute Basophil Count 0.13 10^3/uL (0.0-0.2); Absolute Eosinophil Count 0.18 10^3/uL (0.0-0.7); Absolute Monocyte Count 0.42 10^3/uL (0.1-0.8); Absolute Neutrophil Count 3.78 10^3/uL (1.2-6.7); Basophils % 2.2 %; HCT 46.9 % (40.0-50.0); HGB 16.7 g/dL (13.5-17.5); Immature Grans % 0.3 %; Lymphocytes % 23.6 %; MCH 28.8 pg (27.0-33.0); MCHC 35.6 % (32.0-36.0); MCV 81 fL (80-95); MPV 11.3 fL (8.0-11.0); Monocytes % 7.1 %; Neutrophils % 63.8 %; Platelet Count 158 10^3/uL (130-400); RDW 11.9 % (11.8-14.1); RDW-SD 34.5 fL; WBC 5.93 10^3/uL (4.4-10.8)
== END 2024-04-19 01:14 | disposition home or self-care (01) ==
LOC: LBO 01:13
PROVIDERS: Visit Provider Internal Medicine
DX: D69.3 Immune thrombocytopenic purpura (principal)
CPT/HCPCS: 36415; 85025

== ENCOUNTER 2024-04-26 13:46 | Outpatient (CLI) | payer BC, SELFPAY ==
[2024-04-26 13:50] LABS: Abs Immature Grans 0.02 10^3/uL (0.0-0.06); Absolute Basophil Count 0.12 10^3/uL (0.0-0.2); Absolute Eosinophil Count 0.33 10^3/uL (0.0-0.7); Absolute Lymphocyte Count 1.62 10^3/uL (1.2-3.4); Absolute Neutrophil Count 4.05 10^3/uL (1.2-6.7); Basophils % 1.8 %; HGB 15.8 g/dL (13.5-17.5); Immature Grans % 0.3 %; Lymphocytes % 24.4 %; MCH 28.6 pg (27.0-33.0); MCHC 34.3 % (32.0-36.0); MCV 83 fL (80-95); MPV 10.4 fL (8.0-11.0); Monocytes % 7.5 %; Platelet Count 376 10^3/uL (130-400); RBC 5.52 10^6/uL (4.36-5.78); RDW 12.3 % (11.8-14.1); RDW-SD 37.4 fL; WBC 6.64 10^3/uL (4.4-10.8)
== END 2024-04-26 13:47 | disposition home or self-care (01) ==
LOC: LBO 13:47
PROVIDERS: Visit Provider Internal Medicine
DX: D69.3 Immune thrombocytopenic purpura (principal)
CPT/HCPCS: 36415; 85025

== ENCOUNTER 2024-05-03 13:11 | Outpatient (CLI) | payer BC, SELFPAY ==
[2024-05-03 12:56] LABS: Abs Immature Grans 0.02 10^3/uL (0.0-0.06); Absolute Basophil Count 0.13 10^3/uL (0.0-0.2); Absolute Eosinophil Count 0.27 10^3/uL (0.0-0.7); Absolute Lymphocyte Count 1.57 10^3/uL (1.2-3.4); Absolute Monocyte Count 0.66 10^3/uL (0.1-0.8); Basophils % 1.7 %; Eosinophils % 3.4 %; HCT 48.6 % (40.0-50.0); HGB 16.7 g/dL (13.5-17.5); Immature Grans % 0.3 %; MCH 28.6 pg (27.0-33.0); MCHC 34.4 % (32.0-36.0); MCV 83 fL (80-95); MPV 9.8 fL (8.0-11.0); Monocytes % 8.4 %; Neutrophils % 66.2 %; RBC 5.83 10^6/uL (4.36-5.78); RDW 12.4 % (11.8-14.1); RDW-SD 37.3 fL; WBC 7.85 10^3/uL (4.4-10.8)
[2024-05-03 13:59] LABS: Diff Comment Diff Reviewed; RBC Morphology Normal
[2024-05-03 14:00] LABS: Platelet Count 667 10^3/uL (130-400)
== END 2024-05-03 13:12 | disposition home or self-care (01) ==
LOC: LBO 13:11
PROVIDERS: Visit Provider Internal Medicine
DX: D69.3 Immune thrombocytopenic purpura (principal)
CPT/HCPCS: 36415; 85025

== ENCOUNTER 2024-05-23 10:20 | Outpatient (CLI) | payer BC, SELFPAY ==
[2024-05-23 09:54] LABS: Abs Immature Grans 0.02 10^3/uL (0.0-0.06); Absolute Basophil Count 0.13 10^3/uL (0.0-0.2); Absolute Eosinophil Count 0.31 10^3/uL (0.0-0.7); Absolute Lymphocyte Count 1.52 10^3/uL (1.2-3.4); Absolute Monocyte Count 0.43 10^3/uL (0.1-0.8); Absolute Neutrophil Count 4.31 10^3/uL (1.2-6.7); Basophils % 1.9 %; Eosinophils % 4.6 %; HCT 46.5 % (40.0-50.0); HGB 16.5 g/dL (13.5-17.5); Immature Grans % 0.3 %; Lymphocytes % 22.6 %; MCH 29.2 pg (27.0-33.0); MCHC 35.5 % (32.0-36.0); MCV 82 fL (80-95); MPV 10.5 fL (8.0-11.0); Monocytes % 6.4 %; Neutrophils % 64.2 %; Platelet Count 180 10^3/uL (130-400); RBC 5.66 10^6/uL (4.36-5.78); RDW 12.6 % (11.8-14.1); RDW-SD 37.4 fL; WBC 6.72 10^3/uL (4.4-10.8)
== END 2024-05-23 10:21 | disposition home or self-care (01) ==
LOC: LBO 10:22
PROVIDERS: Visit Provider Internal Medicine
DX: D69.3 Immune thrombocytopenic purpura (principal)
CPT/HCPCS: 36415; 85025

== ENCOUNTER 2024-06-12 13:41 | Outpatient (CLI) | payer BC, SELFPAY ==
[2024-06-12 11:59] LABS: Abs Immature Grans 0.03 10^3/uL (0.0-0.06); Absolute Basophil Count 0.12 10^3/uL (0.0-0.2); Absolute Eosinophil Count 0.25 10^3/uL (0.0-0.7); Absolute Neutrophil Count 4.42 10^3/uL (1.2-6.7); Basophils % 1.8 %; Eosinophils % 3.8 %; HCT 46.3 % (40.0-50.0); HGB 16.3 g/dL (13.5-17.5); Immature Grans % 0.5 %; Lymphocytes % 18.4 %; MCH 29.3 pg (27.0-33.0); MCHC 35.2 % (32.0-36.0); MCV 83 fL (80-95); MPV 10.9 fL (8.0-11.0); Monocytes % 7.7 %; Neutrophils % 67.8 %; Platelet Count 234 10^3/uL (130-400); RBC 5.56 10^6/uL (4.36-5.78); RDW-SD 39.6 fL; WBC 6.52 10^3/uL (4.4-10.8)
== END 2024-06-12 13:42 | disposition home or self-care (01) ==
LOC: LBO 13:41
PROVIDERS: Visit Provider Internal Medicine
DX: D69.3 Immune thrombocytopenic purpura (principal)
CPT/HCPCS: 36415; 85025

== ENCOUNTER 2024-07-03 10:03 | Outpatient (CLI) | payer BC, SELFPAY ==
[2024-07-03 10:00] LABS: Abs Immature Grans 0.01 10^3/uL (0.0-0.06); Absolute Basophil Count 0.06 10^3/uL (0.0-0.2); Absolute Eosinophil Count 0.34 10^3/uL (0.0-0.7); Absolute Lymphocyte Count 1.19 10^3/uL (1.2-3.4); Absolute Monocyte Count 0.66 10^3/uL (0.1-0.8); Absolute Neutrophil Count 4.28 10^3/uL (1.2-6.7); Basophils % 0.9 %; Eosinophils % 5.2 %; HCT 45.9 % (40.0-50.0); HGB 16.7 g/dL (13.5-17.5); Immature Grans % 0.2 %; Lymphocytes % 18.2 %; MCH 29.6 pg (27.0-33.0); MCHC 36.4 % (32.0-36.0); MCV 81 fL (80-95); MPV 10.9 fL (8.0-11.0); Monocytes % 10.1 %; Neutrophils % 65.4 %; Platelet Count 147 10^3/uL (130-400); RBC 5.64 10^6/uL (4.36-5.78); RDW-SD 35.5 fL; WBC 6.54 10^3/uL (4.4-10.8)
== END 2024-07-03 10:04 | disposition home or self-care (01) ==
LOC: LBO 10:03
PROVIDERS: Visit Provider Internal Medicine
DX: D69.3 Immune thrombocytopenic purpura (principal)
CPT/HCPCS: 36415; 85025

== ENCOUNTER 2024-07-31 02:54 | Outpatient (CLI) | payer BC, SELFPAY ==
[2024-07-31 11:48] LABS: Abs Immature Grans 0.01 10^3/uL (0.0-0.06); Absolute Eosinophil Count 0.41 10^3/uL (0.0-0.7); Absolute Lymphocyte Count 1.41 10^3/uL (1.2-3.4); Absolute Monocyte Count 0.41 10^3/uL (0.1-0.8); Absolute Neutrophil Count 3.54 10^3/uL (1.2-6.7); Basophils % 1.7 %; HCT 46.6 % (40.0-50.0); HGB 16.9 g/dL (13.5-17.5); Immature Grans % 0.2 %; MCH 29.9 pg (27.0-33.0); MCHC 36.3 % (32.0-36.0); MCV 83 fL (80-95); Neutrophils % 60.1 %; Platelet Count 172 10^3/uL (130-400); RBC 5.65 10^6/uL (4.36-5.78); RDW 11.9 % (11.8-14.1); RDW-SD 35.8 fL; WBC 5.88 10^3/uL (4.4-10.8)
== END 2024-07-31 02:55 | disposition home or self-care (01) ==
LOC: LBO 02:54
PROVIDERS: Visit Provider Internal Medicine
DX: D69.3 Immune thrombocytopenic purpura (principal)
CPT/HCPCS: 36415; 85025

== ENCOUNTER 2024-08-21 08:51 | Outpatient (CLI) | payer BC, SELFPAY ==
[2024-08-21 12:40] LABS: Abs Immature Grans 0.03 10^3/uL (0.0-0.06); Absolute Basophil Count 0.12 10^3/uL (0.0-0.2); Absolute Eosinophil Count 0.36 10^3/uL (0.0-0.7); Absolute Lymphocyte Count 1.25 10^3/uL (1.2-3.4); Absolute Monocyte Count 0.49 10^3/uL (0.1-0.8); Absolute Neutrophil Count 3.85 10^3/uL (1.2-6.7); Eosinophils % 5.9 %; HCT 46.7 % (40.0-50.0); HGB 16.7 g/dL (13.5-17.5); Immature Grans % 0.5 %; Lymphocytes % 20.5 %; MCH 29.7 pg (27.0-33.0); MCHC 35.8 % (32.0-36.0); MCV 83 fL (80-95); MPV 10.8 fL (8.0-11.0); Neutrophils % 63.1 %; Platelet Count 261 10^3/uL (130-400); RBC 5.63 10^6/uL (4.36-5.78); RDW 11.8 % (11.8-14.1); RDW-SD 35.4 fL
== END 2024-08-21 08:52 | disposition home or self-care (01) ==
LOC: LBO 08:52
PROVIDERS: Visit Provider Internal Medicine
DX: D69.3 Immune thrombocytopenic purpura (principal)
CPT/HCPCS: 36415; 85025

== ENCOUNTER 2024-09-04 01:33 | Outpatient (CLI) | payer BC, SELFPAY ==
[2024-09-04 12:10] LABS: Abs Immature Grans 0.03 10^3/uL (0.0-0.06); Absolute Basophil Count 0.08 10^3/uL (0.0-0.2); Absolute Eosinophil Count 0.42 10^3/uL (0.0-0.7); Absolute Lymphocyte Count 1.93 10^3/uL (1.2-3.4); Absolute Monocyte Count 0.73 10^3/uL (0.1-0.8); HCT 49.6 % (40.0-50.0); HGB 17.2 g/dL (13.5-17.5); Immature Grans % 0.4 %; MCH 29.1 pg (27.0-33.0); MCHC 34.7 % (32.0-36.0); MCV 84 fL (80-95); MPV 10.1 fL (8.0-11.0); Monocytes % 8.7 %; Neutrophils % 61.9 %; Platelet Count 232 10^3/uL (130-400); RBC 5.92 10^6/uL (4.36-5.78); RDW 11.7 % (11.8-14.1); RDW-SD 35.3 fL; WBC 8.39 10^3/uL (4.4-10.8)
[2024-09-04 13:28] LABS: ALT 33 U/L (16-63); AST 20 U/L (15-37); Albumin 3.9 g/dL (3.4-5.0); Alkaline Phosphatase 122 U/L (46-116); BUN 15 mg/dL (7-18); Bilirubin, Total 0.6 mg/dL (0.2-1.0); Chloride 107 mmol/L (98-107); Estimated GFR 88.33 (mL/min/1.73m2); Glucose 85 mg/dL (74-106); Potassium 3.9 mmol/L (3.5-5.1); Sodium 141 mmol/L (136-145)
[2024-09-04 13:53] LABS: Hemoglobin A1C 9.9 % (<5.7)
[2024-09-07 09:12] LABS: C-Peptide 0.7 ng/mL (1.1 - 4.4)
== END 2024-09-04 01:34 | disposition home or self-care (01) ==
LOC: LBO 01:33
PROVIDERS: Internal Medicine; Visit Provider Internal Medicine
DX: D69.3 Immune thrombocytopenic purpura (principal); D69.6 Thrombocytopenia, unspecified
CPT/HCPCS: 36415; 80053; 83036; 84681; 85025

== ENCOUNTER 2024-09-18 03:39 | Outpatient (CLI) | payer BC, SELFPAY ==
[2024-09-18 12:34] LABS: Abs Immature Grans 0.01 10^3/uL (0.0-0.06); HCT 47.1 % (40.0-50.0); HGB 16.4 g/dL (13.5-17.5); Immature Grans % 0.2 %; MCH 29.1 pg (27.0-33.0); MCHC 34.8 % (32.0-36.0); MCV 84 fL (80-95); MPV 10.6 fL (8.0-11.0); Platelet Count 167 10^3/uL (130-400); RBC 5.63 10^6/uL (4.36-5.78); RDW 11.8 % (11.8-14.1); RDW-SD 35.2 fL; WBC 5.17 10^3/uL (4.4-10.8)
== END 2024-09-18 03:40 | disposition home or self-care (01) ==
LOC: LBO 03:39
PROVIDERS: Visit Provider Internal Medicine
DX: D69.3 Immune thrombocytopenic purpura (principal)
CPT/HCPCS: 36415; 85025

== ENCOUNTER 2024-10-17 08:47 | Outpatient (CLI) | payer BC, SELFPAY ==
[2024-10-17 07:26] LABS: Abs Immature Grans 0.02 10^3/uL (0.0-0.06); HCT 43.8 % (40.0-50.0); HGB 15.8 g/dL (13.5-17.5); Immature Grans % 0.3 %; MCH 29.3 pg (27.0-33.0); MCHC 36.1 % (32.0-36.0); MCV 81 fL (80-95); RBC 5.39 10^6/uL (4.36-5.78); RDW 11.9 % (11.8-14.1); RDW-SD 34.5 fL; WBC 6.48 10^3/uL (4.4-10.8)
[2024-10-17 08:08] LABS: RBC Morphology Normal
[2024-10-17 08:09] LABS: Platelet Count 2 10^3/uL (130-400)
== END 2024-10-17 08:48 | disposition home or self-care (01) ==
LOC: LBO 08:47
PROVIDERS: Visit Provider Internal Medicine
DX: D69.3 Immune thrombocytopenic purpura (principal)
CPT/HCPCS: 36415; 85025

== ENCOUNTER 2024-10-21 08:07 | Outpatient (CLI) | payer BC, SELFPAY ==
[2024-10-21 07:34] LABS: Abs Immature Grans 0.07 10^3/uL (0.0-0.06); HCT 42.9 % (40.0-50.0); HGB 15.3 g/dL (13.5-17.5); Immature Grans % 0.7 %; MCH 28.8 pg (27.0-33.0); MCHC 35.7 % (32.0-36.0); MCV 81 fL (80-95); MPV 10.6 fL (8.0-11.0); Platelet Count 171 10^3/uL (130-400); RBC 5.32 10^6/uL (4.36-5.78); RDW 11.8 % (11.8-14.1); RDW-SD 34.1 fL; WBC 9.50 10^3/uL (4.4-10.8)
== END 2024-10-21 08:08 | disposition home or self-care (01) ==
LOC: LBO 08:08
PROVIDERS: Visit Provider Internal Medicine
DX: D69.3 Immune thrombocytopenic purpura (principal)
CPT/HCPCS: 36415; 85025

== ENCOUNTER 2024-11-04 12:45 | Outpatient (CLI) | payer BC, SELFPAY ==
[2024-11-04 07:26] LABS: Abs Immature Grans 0.02 10^3/uL (0.0-0.06); HCT 45.6 % (40.0-50.0); HGB 16.2 g/dL (13.5-17.5); Immature Grans % 0.3 %; MCH 28.9 pg (27.0-33.0); MCHC 35.5 % (32.0-36.0); MCV 81 fL (80-95); RBC 5.61 10^6/uL (4.36-5.78); RDW 11.9 % (11.8-14.1); RDW-SD 35.2 fL; WBC 6.38 10^3/uL (4.4-10.8)
[2024-11-04 08:05] LABS: Platelet Count < 2 10^3/uL (130-400); RBC Morphology Normal
== END 2024-11-04 12:46 | disposition home or self-care (01) ==
LOC: LBO 12:46
PROVIDERS: Visit Provider Internal Medicine
DX: D69.3 Immune thrombocytopenic purpura (principal)
CPT/HCPCS: 36415; 85025

== ENCOUNTER 2024-11-07 14:04 | Outpatient (CLI) | payer BC, SELFPAY ==
[2024-11-07 07:45] LABS: Abs Immature Grans 0.06 10^3/uL (0.0-0.06); HCT 41.7 % (40.0-50.0); HGB 14.9 g/dL (13.5-17.5); Immature Grans % 0.4 %; MCH 28.9 pg (27.0-33.0); MCHC 35.7 % (32.0-36.0); MCV 81 fL (80-95); MPV 10.8 fL (8.0-11.0); Platelet Count 197 10^3/uL (130-400); RBC 5.16 10^6/uL (4.36-5.78); RDW 12.1 % (11.8-14.1); RDW-SD 35.5 fL; WBC 15.54 10^3/uL (4.4-10.8)
== END 2024-11-07 14:05 | disposition home or self-care (01) ==
LOC: LBO 14:04
PROVIDERS: Visit Provider Nurse Practitioner Adult Health
DX: D69.3 Immune thrombocytopenic purpura (principal)
CPT/HCPCS: 36415; 85025

== ENCOUNTER 2024-11-15 09:01 | Outpatient (CLI) | payer BC, SELFPAY ==
[2024-11-15 08:29] LABS: Abs Immature Grans 0.03 10^3/uL (0.0-0.06); HCT 45.8 % (40.0-50.0); HGB 16.0 g/dL (13.5-17.5); Immature Grans % 0.6 %; MCH 28.8 pg (27.0-33.0); MCHC 34.9 % (32.0-36.0); MCV 82 fL (80-95); MPV 10.0 fL (8.0-11.0); Platelet Count 363 10^3/uL (130-400); RBC 5.56 10^6/uL (4.36-5.78); RDW 12.1 % (11.8-14.1); RDW-SD 36.1 fL; WBC 4.77 10^3/uL (4.4-10.8)
== END 2024-11-15 09:02 | disposition home or self-care (01) ==
LOC: LBO 09:01
PROVIDERS: Visit Provider Internal Medicine
DX: D69.3 Immune thrombocytopenic purpura (principal)
CPT/HCPCS: 36415; 85025

== ENCOUNTER 2024-11-26 01:31 | Outpatient (CLI) | payer BC, SELFPAY ==
[2024-11-26 10:36] LABS: Abs Immature Grans 0.01 10^3/uL (0.0-0.06); HCT 46.9 % (40.0-50.0); HGB 16.4 g/dL (13.5-17.5); Immature Grans % 0.2 %; MCH 28.7 pg (27.0-33.0); MCHC 35.0 % (32.0-36.0); MCV 82 fL (80-95); MPV 12.1 fL (8.0-11.0); RBC 5.72 10^6/uL (4.36-5.78); RDW 12.0 % (11.8-14.1); RDW-SD 35.8 fL; WBC 5.62 10^3/uL (4.4-10.8)
[2024-11-26 10:49] LABS: Platelet Count 46 10^3/uL (130-400); RBC Morphology Normal
== END 2024-11-26 01:32 | disposition home or self-care (01) ==
LOC: LBO 11-27 01:31
PROVIDERS: Visit Provider Internal Medicine
DX: D69.3 Immune thrombocytopenic purpura (principal)
CPT/HCPCS: 36415; 85025

== ENCOUNTER 2024-12-03 07:53 | Outpatient (CLI) | payer BC, SELFPAY ==
[2024-12-03 07:36] LABS: Abs Immature Grans 0.02 10^3/uL (0.0-0.06); HCT 45.8 % (40.0-50.0); HGB 16.2 g/dL (13.5-17.5); Immature Grans % 0.3 %; MCH 29.2 pg (27.0-33.0); MCHC 35.4 % (32.0-36.0); MCV 83 fL (80-95); MPV 12.2 fL (8.0-11.0); Platelet Count 109 10^3/uL (130-400); RBC 5.55 10^6/uL (4.36-5.78); RDW 12.3 % (11.8-14.1); RDW-SD 36.9 fL; WBC 6.89 10^3/uL (4.4-10.8)
== END 2024-12-03 07:54 | disposition home or self-care (01) ==
LOC: LBO 07:53
PROVIDERS: Visit Provider Internal Medicine
DX: D69.3 Immune thrombocytopenic purpura (principal)
CPT/HCPCS: 36415; 85025

== ENCOUNTER 2024-12-16 09:30 | Outpatient (CLI) | payer MEDICAID, SELFPAY ==
[2024-12-16 09:29] LABS: Abs Immature Grans 0.02 10^3/uL (0.0-0.06); HCT 46.5 % (40.0-50.0); HGB 16.5 g/dL (13.5-17.5); Immature Grans % 0.3 %; MCH 29.8 pg (27.0-33.0); MCHC 35.5 % (32.0-36.0); MCV 84 fL (80-95); MPV 10.4 fL (8.0-11.0); Platelet Count 376 10^3/uL (130-400); RBC 5.54 10^6/uL (4.36-5.78); RDW 12.1 % (11.8-14.1); RDW-SD 36.9 fL; WBC 7.58 10^3/uL (4.4-10.8)
== END 2024-12-16 09:31 | disposition home or self-care (01) ==
LOC: LBO 09:30
PROVIDERS: Visit Provider Internal Medicine
DX: D69.3 Immune thrombocytopenic purpura (principal)
CPT/HCPCS: 36415; 85025

== ENCOUNTER 2024-12-24 10:31 | Outpatient (CLI) | payer MEDICAID, SELFPAY ==
[2024-12-24 09:43] LABS: Abs Immature Grans 0.02 10^3/uL (0.0-0.06); HCT 47.3 % (40.0-50.0); HGB 16.5 g/dL (13.5-17.5); Immature Grans % 0.3 %; MCH 29.1 pg (27.0-33.0); MCHC 34.9 % (32.0-36.0); MCV 83 fL (80-95); MPV 11.0 fL (8.0-11.0); Platelet Count 225 10^3/uL (130-400); RBC 5.67 10^6/uL (4.36-5.78); RDW 12.3 % (11.8-14.1); RDW-SD 37.2 fL; WBC 6.90 10^3/uL (4.4-10.8)
== END 2024-12-24 10:32 | disposition home or self-care (01) ==
LOC: LBO 10:31
PROVIDERS: Visit Provider Internal Medicine
DX: D89.3 Immune reconstitution syndrome (principal)
CPT/HCPCS: 36415; 85025

== ENCOUNTER 2025-01-03 14:22 | Outpatient (CLI) | payer MEDICAID, SELFPAY ==
[2025-01-03 09:32] LABS: Abs Immature Grans 0.02 10^3/uL (0.0-0.06); HCT 42.8 % (40.0-50.0); HGB 15.3 g/dL (13.5-17.5); Immature Grans % 0.3 %; MCH 29.7 pg (27.0-33.0); MCHC 35.7 % (32.0-36.0); MCV 83 fL (80-95); MPV 12.4 fL (8.0-11.0); Platelet Count 170 10^3/uL (130-400); RBC 5.16 10^6/uL (4.36-5.78); RDW 12.3 % (11.8-14.1); RDW-SD 37.2 fL; WBC 6.90 10^3/uL (4.4-10.8)
== END 2025-01-03 14:23 | disposition home or self-care (01) ==
LOC: LBO 14:22
PROVIDERS: Visit Provider Internal Medicine
DX: D69.3 Immune thrombocytopenic purpura (principal)
CPT/HCPCS: 36415; 85025

== ENCOUNTER 2025-01-14 12:19 | Outpatient (CLI) | payer MEDICAID, SELFPAY ==
[2025-01-14 14:02] LABS: Abs Immature Grans 0.01 10^3/uL (0.0-0.06); HCT 48.0 % (40.0-50.0); HGB 17.2 g/dL (13.5-17.5); Immature Grans % 0.1 %; MCH 29.4 pg (27.0-33.0); MCHC 35.8 % (32.0-36.0); MCV 82 fL (80-95); RBC 5.85 10^6/uL (4.36-5.78); RDW 12.2 % (11.8-14.1); RDW-SD 36.5 fL; WBC 7.47 10^3/uL (4.4-10.8)
[2025-01-14 14:19] LABS: Platelet Count 7 10^3/uL (130-400)
[2025-01-14 14:21] LABS: RBC Morphology Normal
== END 2025-01-14 12:20 | disposition home or self-care (01) ==
PROVIDERS: Visit Provider Nurse Practitioner Adult Health
DX: D69.3 Immune thrombocytopenic purpura (principal)
CPT/HCPCS: 36415; 85025

== ENCOUNTER 2025-01-22 08:13 | Outpatient (CLI) | payer MEDICAID, SELFPAY ==
[2025-01-22 07:38] LABS: Abs Immature Grans 0.02 10^3/uL (0.0-0.06); HCT 42.3 % (40.0-50.0); HGB 15.1 g/dL (13.5-17.5); Immature Grans % 0.3 %; MCH 29.0 pg (27.0-33.0); MCHC 35.7 % (32.0-36.0); MCV 81 fL (80-95); RBC 5.20 10^6/uL (4.36-5.78); RDW 11.9 % (11.8-14.1); RDW-SD 35.4 fL; WBC 5.72 10^3/uL (4.4-10.8)
[2025-01-22 07:56] LABS: ALT 17 U/L (10-49); AST 15 U/L (<34); Albumin 3.5 g/dL (3.4-5.0); Alkaline Phosphatase 71 U/L (46-116); Anion Gap 6.7 mmol/L (3-11); BUN 21 mg/dL (9-23); Bilirubin, Total 0.40 mg/dL (0.2-1.2); CO2 25.3 mmol/L (20.0-31.0); Calcium 8.4 mg/dL (8.3-10.6); Chloride 104 mmol/L (98-107); Glucose 266 mg/dL (74-106); Platelet Count 50 10^3/uL (130-400); Potassium 4.2 mmol/L (3.5-5.1); Sodium 136 mmol/L (136-145); Total Protein 7.1 g/dL (5.7-8.2)
== END 2025-01-22 08:14 | disposition home or self-care (01) ==
LOC: LBO 08:14
PROVIDERS: Visit Provider Internal Medicine
DX: D69.3 Immune thrombocytopenic purpura (principal); R19.7 Diarrhea, unspecified
CPT/HCPCS: 36415; 80053; 85025

== ENCOUNTER 2025-01-28 09:52 | Outpatient (CLI) | payer MEDICAID, SELFPAY ==
[2025-01-28 11:23] LABS: Abs Immature Grans 0.01 10^3/uL (0.0-0.06); HCT 44.3 % (40.0-50.0); HGB 15.7 g/dL (13.5-17.5); Immature Grans % 0.2 %; MCH 28.7 pg (27.0-33.0); MCHC 35.4 % (32.0-36.0); MCV 81 fL (80-95); MPV 12.5 fL (8.0-11.0); Platelet Count 131 10^3/uL (130-400); RBC 5.47 10^6/uL (4.36-5.78); RDW 12.1 % (11.8-14.1); RDW-SD 35.6 fL; WBC 4.67 10^3/uL (4.4-10.8)
== END 2025-01-28 09:53 | disposition home or self-care (01) ==
PROVIDERS: Visit Provider Nurse Practitioner Adult Health
DX: D69.3 Immune thrombocytopenic purpura (principal)
CPT/HCPCS: 36415; 85025

== ENCOUNTER 2025-02-10 10:34 | Outpatient (CLI) | payer MEDICAID, SELFPAY ==
[2025-02-10 08:56] LABS: Abs Immature Grans 0.01 10^3/uL (0.0-0.06); HCT 42.7 % (40.0-50.0); HGB 15.1 g/dL (13.5-17.5); Immature Grans % 0.3 %; MCH 29.3 pg (27.0-33.0); MCHC 35.4 % (32.0-36.0); MCV 83 fL (80-95); MPV 13.5 fL (8.0-11.0); RBC 5.16 10^6/uL (4.36-5.78); RDW 12.2 % (11.8-14.1); RDW-SD 36.9 fL; WBC 3.68 10^3/uL (4.4-10.8)
[2025-02-10 09:29] LABS: Platelet Count 34 10^3/uL (130-400)
[2025-02-10 09:30] LABS: RBC Morphology Normal
== END 2025-02-10 10:35 | disposition home or self-care (01) ==
LOC: LBO 10:34
PROVIDERS: Visit Provider Nurse Practitioner Adult Health
DX: D69.3 Immune thrombocytopenic purpura (principal)
CPT/HCPCS: 36415; 85025

== ENCOUNTER 2025-02-21 10:06 | Outpatient (CLI) | payer MEDICAID, SELFPAY ==
[2025-02-21 10:04] LABS: Abs Immature Grans 0.06 10^3/uL (0.0-0.06); HCT 41.2 % (40.0-50.0); HGB 14.4 g/dL (13.5-17.5); Immature Grans % 0.5 %; MCH 29.1 pg (27.0-33.0); MCHC 35.0 % (32.0-36.0); MCV 83 fL (80-95); MPV 12.0 fL (8.0-11.0); Platelet Count 205 10^3/uL (130-400); RBC 4.95 10^6/uL (4.36-5.78); RDW 13.2 % (11.8-14.1); RDW-SD 39.2 fL; WBC 11.12 10^3/uL (4.4-10.8)
== END 2025-02-21 10:07 | disposition home or self-care (01) ==
LOC: LBO 10:06
PROVIDERS: Visit Provider Nurse Practitioner Adult Health
DX: D69.3 Immune thrombocytopenic purpura (principal)
CPT/HCPCS: 36415; 85025

== ENCOUNTER 2025-02-28 00:45 | Outpatient (CLI) | payer MEDICAID, SELFPAY ==
[2025-02-28 10:34] LABS: Abs Immature Grans 0.06 10^3/uL (0.0-0.06); HCT 42.2 % (40.0-50.0); HGB 15.0 g/dL (13.5-17.5); Immature Grans % 0.4 %; MCH 29.5 pg (27.0-33.0); MCHC 35.5 % (32.0-36.0); MCV 83 fL (80-95); RBC 5.09 10^6/uL (4.36-5.78); RDW 13.1 % (11.8-14.1); RDW-SD 38.8 fL; WBC 15.81 10^3/uL (4.4-10.8)
[2025-02-28 11:03] LABS: Platelet Count 27 10^3/uL (130-400); RBC Morphology Normal
== END 2025-02-28 00:46 | disposition home or self-care (01) ==
PROVIDERS: Visit Provider Nurse Practitioner Adult Health
DX: D69.3 Immune thrombocytopenic purpura (principal)
CPT/HCPCS: 36415; 85025

== ENCOUNTER 2025-03-03 08:06 | Outpatient (CLI) | payer MEDICAID, SELFPAY ==
[2025-03-03 07:52] LABS: Abs Immature Grans 0.05 10^3/uL (0.0-0.06); HCT 41.2 % (40.0-50.0); HGB 14.5 g/dL (13.5-17.5); Immature Grans % 0.4 %; MCH 29.4 pg (27.0-33.0); MCHC 35.2 % (32.0-36.0); MCV 84 fL (80-95); RBC 4.93 10^6/uL (4.36-5.78); RDW 13.0 % (11.8-14.1); RDW-SD 39.2 fL; WBC 12.17 10^3/uL (4.4-10.8)
[2025-03-03 08:20] LABS: Platelet Count 15 10^3/uL (130-400)
== END 2025-03-03 08:07 | disposition home or self-care (01) ==
LOC: LBO 08:06
PROVIDERS: Visit Provider Nurse Practitioner Adult Health
DX: D69.3 Immune thrombocytopenic purpura (principal)
CPT/HCPCS: 36415; 85025

== ENCOUNTER 2025-03-07 09:44 | Outpatient (CLI) | payer MEDICAID, SELFPAY ==
[2025-03-07 07:57] LABS: Abs Immature Grans 0.06 10^3/uL (0.0-0.06); HCT 44.7 % (40.0-50.0); HGB 15.4 g/dL (13.5-17.5); Immature Grans % 0.8 %; MCH 29.4 pg (27.0-33.0); MCHC 34.5 % (32.0-36.0); MCV 85 fL (80-95); MPV 11.6 fL (8.0-11.0); Platelet Count 204 10^3/uL (130-400); RBC 5.24 10^6/uL (4.36-5.78); RDW 13.3 % (11.8-14.1); RDW-SD 41.2 fL; WBC 7.67 10^3/uL (4.4-10.8)
== END 2025-03-07 09:45 | disposition home or self-care (01) ==
LOC: LBO 09:45
PROVIDERS: Visit Provider Nurse Practitioner Adult Health
DX: D69.3 Immune thrombocytopenic purpura (principal)
CPT/HCPCS: 36415; 85025